=== PATIENT | male | born 1950 | race Caucasian/White ===

== ENCOUNTER 2020-05-13 11:30 | Inpatient (IN) ==
[2020-05-13] MEDS ORDERED: PANTOPRAZOLE 40 MG VIAL IV STA (12:18)
[2020-05-13] MEDS ORDERED: SODIUM CHLORIDE 0.9% 1,000 ML IV STA (12:18)
[2020-05-13] MEDS ORDERED: ONDANSETRON 4 MG/2 ML VIAL IV STA (12:18)
[2020-05-13 12:33] LABS: Basophils % 0.5 % (0.0-0.8); Eosinophils % 0.5 % (0.00-10.9); Hematocrit 33.1 VOL% (42.0-52.0); Hemoglobin 11.6 GM/DL (14.0-18.0); Immature Granulocytes % 0.6 %; Immature Granulocytes Absolute 0.05 #; Lymphocytes % 11.4 % (21.2-54.2); Mean Corpuscular Volume 96.8 FL (87-102); Mean Platelet Volume 9.3 FL (9.6-12.0); Monocytes % 11.7 % (1.7-12.7); Neutrophils % 75.3 % (38.7-73.9); Platelet Count 176 T/CUMM (130-400); Red Blood Count 3.42 MC/CUMM (3.8-5.5); Red Cell Distribution Width 12.2 % (9.3-17.3); White Blood Count 8.6 T/CUMM (4-12)
[2020-05-13 12:42] LABS: INR 0.9; PT Patient Result 10.2 SECS (9.8-11.9); Partial Thromboplastin Time 25.9 SECS (23.9-33.8)
[2020-05-13 13:16] LABS: Albumin 3.5 G/DL (3.4-5.0); Bilirubin,Total 1.1 MG/DL (0.2-1.0); Calcium 8.4 MG/DL (8.5-10.1); Osmolality,Calculated 263.8 MOS/KG (273-304); Total Protein 6.2 G/DL (6.4-8.3)
[2020-05-13] MEDS ORDERED: ONDANSETRON 4 MG/2 ML VIAL IV PRN (15:58)
[2020-05-13] MEDS ORDERED: DEXTROSE 50% 25 GM/50 ML VIAL IV PRN (15:58)
[2020-05-13] MEDS ORDERED: ACETAMINOPHEN 325 MG TABLET PO PRN (15:58)
[2020-05-13] MEDS ORDERED: GLUCAGON 1 MG VIAL IM PRN (15:58)
[2020-05-13 16:09] LABS: Hematocrit 32.7 VOL% (42.0-52.0); Hemoglobin 11.2 GM/DL (14.0-18.0)
[2020-05-13] MEDS: SODIUM CHLORIDE 0.9% 1,000 ML IV SCH (17:00)
[2020-05-14] MEDS: SODIUM CHLORIDE 0.9% 1,000 ML IV SCH ×3 (00:14→17:19)
[2020-05-14 00:58] LABS: Hematocrit 20.5 VOL% (42.0-52.0); Hemoglobin 7.1 GM/DL (14.0-18.0)
[2020-05-14] MEDS ORDERED: SODIUM CHLORIDE 0.9% 1,000 ML IV PRN ×2 (02:36→18:14)
[2020-05-14 05:56] LABS: Basophils % 0.3 % (0.0-0.8); Eosinophils % 0.3 % (0.00-10.9); Hematocrit 18.6 VOL% (42.0-52.0); Immature Granulocytes % 0.5 %; Immature Granulocytes Absolute 0.03 #; Lymphocytes # 0.8 10*3/uL (1.4-4.0); Lymphocytes % 13.3 % (21.2-54.2); Mean Corpuscular HGB Conc 34.4 GM/DL (32-36); Mean Corpuscular Volume 98.4 FL (87-102); Mean Platelet Volume 9.9 FL (9.6-12.0); Monocytes % 11.6 % (1.7-12.7); Platelet Count 159 T/CUMM (130-400); Red Blood Count 1.89 MC/CUMM (3.8-5.5); Red Cell Distribution Width 12.3 % (9.3-17.3); White Blood Count 5.8 T/CUMM (4-12)
[2020-05-14 05:59] LABS: Hemoglobin 6.4 GM/DL (14.0-18.0)
[2020-05-14 06:05] LABS: PT Patient Result 10.4 SECS (9.8-11.9)
[2020-05-14 06:38] LABS: Albumin 2.4 G/DL (3.4-5.0); Bilirubin,Total 0.9 MG/DL (0.2-1.0); Calcium 7.4 MG/DL (8.5-10.1); Risk Ratio 2.64; Thyroid Stimulating Hormone 0.981 uIU/ml (0.358-3.74); Total Protein 4.6 G/DL (6.4-8.3)
[2020-05-14 08:22] LABS: Hematocrit 19.2 VOL% (42.0-52.0); Hemoglobin 6.6 GM/DL (14.0-18.0)
[2020-05-14] MEDS ORDERED: LIDOCAINE 2% 5 ML VIAL ONE (09:00)
[2020-05-14] MEDS ORDERED: propofoL 200 MG/20 ML VIAL IV ONE (09:00)
[2020-05-14] MEDS: PANTOPRAZOLE 40 MG VIAL IV SCH (09:10)
[2020-05-14] MEDS: LACTATED RINGERS 1,000 ML IV SCH ×2 (09:33→13:56)
[2020-05-14 17:56] LABS: Hematocrit 20.4 VOL% (42.0-52.0); Hemoglobin 6.8 GM/DL (14.0-18.0)
[2020-05-15 06:16] LABS: Albumin 2.3 G/DL (3.4-5.0); Bilirubin,Total 0.6 MG/DL (0.2-1.0); Calcium 7.6 MG/DL (8.5-10.1); Osmolality,Calculated 273.8 MOS/KG (273-304); Total Protein 4.2 G/DL (6.4-8.3)
[2020-05-15 06:27] LABS: PT Patient Result 10.7 SECS (9.8-11.9)
[2020-05-15] MEDS: SODIUM CHLORIDE 0.9% 1,000 ML IV SCH ×3 (06:31→22:22)
[2020-05-15 06:42] LABS: Basophils % 0.2 % (0.0-0.8); Eosinophils % 0.4 % (0.00-10.9); Hematocrit 23.2 VOL% (42.0-52.0); Immature Granulocytes % 0.4 %; Immature Granulocytes Absolute 0.02 #; Lymphocytes # 0.8 10*3/uL (1.4-4.0); Lymphocytes % 15.1 % (21.2-54.2); Mean Corpuscular HGB Conc 34.5 GM/DL (32-36); Mean Platelet Volume 10.2 FL (9.6-12.0); Monocytes % 8.9 % (1.7-12.7); Platelet Count 102 T/CUMM (130-400); Red Blood Count 2.55 MC/CUMM (3.8-5.5); Red Cell Distribution Width 14.7 % (9.3-17.3); White Blood Count 5.2 T/CUMM (4-12)
[2020-05-15] MEDS: PANTOPRAZOLE 40 MG VIAL IV SCH (08:44)
[2020-05-15] MEDS: LACTATED RINGERS 1,000 ML IV SCH (09:12)
[2020-05-15 11:34] LABS: Lymphocytes 14 % (20-55); Ovalocytes Few; Platelet Estimate Adequate; Polychromasia Slight; Segmented Neutrophils 86 % (50-85); Total Cells Counted 100
[2020-05-15 16:44] LABS: Hematocrit 24.8 VOL% (42.0-52.0)
[2020-05-15 16:45] LABS: Hemoglobin 8.4 GM/DL (14.0-18.0)
[2020-05-16 01:07] LABS: Hematocrit 22.3 VOL% (42.0-52.0); Hemoglobin 7.8 GM/DL (14.0-18.0)
[2020-05-16] MEDS: SODIUM CHLORIDE 0.9% 1,000 ML IV SCH (06:04)
[2020-05-16 07:00] LABS: Basophils % 0.4 % (0.0-0.8); Eosinophils % 0.5 % (0.00-10.9); Hematocrit 22.3 VOL% (42.0-52.0); Hemoglobin 7.8 GM/DL (14.0-18.0); Immature Granulocytes % 0.5 %; Immature Granulocytes Absolute 0.03 #; Lymphocytes # 0.6 10*3/uL (1.4-4.0); Mean Corpuscular Volume 90.7 FL (87-102); Mean Platelet Volume 10.2 FL (9.6-12.0); Monocytes % 6.8 % (1.7-12.7); Neutrophils % 81.8 % (38.7-73.9); Platelet Count 138 T/CUMM (130-400); Red Blood Count 2.46 MC/CUMM (3.8-5.5); Red Cell Distribution Width 15.2 % (9.3-17.3); White Blood Count 5.6 T/CUMM (4-12)
[2020-05-16 07:20] LABS: Osmolality,Calculated 273.5 MOS/KG (273-304)
[2020-05-16 07:43] LABS: INR 0.9; PT Patient Result 10.2 SECS (9.8-11.9)
[2020-05-16] MEDS: PANTOPRAZOLE 40 MG VIAL IV SCH (08:34)
[2020-05-16 11:37] VITALS: BP 118/80
== END 2020-05-16 15:45 | disposition home or self-care (01) | DRG 378 ==
LOC: N.ED 11:30 → N.EDINP 11:30 → N.3E 17:33
PROVIDERS: ADMIT Internal Medicine; ATTEND Internal Medicine